=== PATIENT | female | born 1980 | race Two or more races ===

== ENCOUNTER 2020-12-01 01:57 | Emergency (ER) | payer OTHER ==
[~2020-12-01] VITALS: Ht 165.1 cm; Wt 109.3 kg
[2020-12-01] MEDS ORDERED: SIMVASTATIN10 MG (02:37)
[2020-12-01] MEDS ORDERED: DICLOFENAC SODI75 MG PO (04:26)
== END 2020-12-01 06:39 | disposition home or self-care (01) ==
LOC: ER 01:57
DX: M79.18 Myalgia, other site (principal)